=== PATIENT | female | born 2000 | race Caucasian/White ===

== ENCOUNTER 2020-04-29 00:12 | Emergency (ER) | payer OTHER, SELFPAY ==
[~2020-04-29] VITALS: Ht 160 cm; Wt 77.1 kg
[2020-04-29 00:13] VITALS: Ht 160 cm; Wt 77.1 kg
[2020-04-29 01:56] VITALS: BP 129/83
== END 2020-04-29 01:55 | disposition home or self-care (01) ==
LOC: ED 00:12
DX: F41.9 Anxiety disorder, unspecified (principal); Z90.89 Acquired absence of other organs